=== PATIENT | male | born 1985 | race Caucasian/White ===

== ENCOUNTER 2017-11-08 15:55 | Emergency (ER) | payer OTHER ==
[~2017-11-08] VITALS: Ht 175.3 cm; Wt 72.6 kg
[2017-11-08] MEDS ORDERED: MORPHINE SULFATE 5 MG/ML VIAL IM ONE (17:00)
[2017-11-08] MEDS ORDERED: DIAZEPAM INJ 5 MG/ML 2 ML IV ONE (17:00)
[2017-11-08] MEDS ORDERED: HYDROCODONE/APAP 5MG-325MG TAB PO ONE (17:00)
[2017-11-08 17:33] VITALS: BP 143/92
== END 2017-11-08 17:38 | disposition home or self-care (01) ==
LOC: FSED 15:55
DX: M54.6 Pain in thoracic spine (principal); M47.894 Other spondylosis, thoracic region
CPT/HCPCS: 96372; 99283; J2270; J3360